=== PATIENT | female | born 1965 | race Caucasian/White ===

== ENCOUNTER 2018-02-26 09:13 | Outpatient (CLI) | payer OTHER ==
[2018-02-26 10:11] LABS: HB2 TOTAL 15.2 g/dL; HEMOGLOBIN A1C 0.81 g/dL
== END 2018-02-26 09:14 | disposition home or self-care (01) ==
LOC: LAB 09:13
PROVIDERS: ATTEND Family Medicine
DX: E11.43 Type 2 diabetes mellitus with diabetic autonomic (poly)neuropathy (principal)
CPT/HCPCS: 36415; 83036

== ENCOUNTER 2018-08-26 08:42 | Emergency (ER) | payer OTHER ==
--- NOTE | 2018-08-26 09:05 | ED Physician Documentation ---
PD HPI BACK INJURY - Stated complaint Stated Complaint: GLF - History obtained from History obtained from: Patient - History of Present Illness Location: Left, Lower Where injury occurred: Work Timing - onset: How many days ago (4) Timing - duration: Days (4) Timing - details: Abrupt onset (slipped and twisted, with pain in back. Did not fall/impact the ground. Pain low back left side.), Still present Quality: Pain, Spasm, Aching Improved by: Rest, Immobilization Worsened by: Moving, Palpating Associated symptoms: Other (pain radiates down left back of leg to level of behind knee. Sometimes to lateral left lower leg.). No: Fever, Weakness, Numbness Contributing factors: Work related Similar symptoms before: Has not had sx before Review of Systems Constitutional: denies: Fever, Chills, Myalgias Nose: denies: Rhinorrhea / runny nose, Congestion Throat: denies: Sore throat Respiratory: denies: Cough GI: denies: Abdominal Pain, Nausea, Vomiting, Diarrhea : denies: Incontinent Skin: denies: Rash, Abrasion (s), Laceration (s) Neurologic: denies: Focal weakness, Numbness PD PAST MEDICAL HISTORY - Past Medical History Cardiovascular: Hypertension, High cholesterol Endocrine/Autoimmune: Type 2 diabetes - Present Medications Home Medications: Ambulatory Orders Medication Instructions Recorded Confirmed Glipizide 5 mg PO DAILY 08/26/18 08/26/18 Hydrocodone/Acetaminophen [[place] 1 - 2 each PO Q6H PRN #25 tablet 08/26/18 5-325 Tablet] Liraglutide [Victoza 2-Reagan] 0.6 mg SQ DAILY 08/26/18 08/26/18 Lisinopril 20 mg PO DAILY 08/26/18 08/26/18 Methocarbamol [Robaxin] 500 mg PO Q6H PRN #30 tablet 08/26/18 Naproxen 500 mg PO BID #20 tablet 08/26/18 Simvastatin 40 mg PO DAILY 08/26/18 08/26/18 metFORMIN [Glucophage] 500 mg PO BIDWM 08/26/18 08/26/18 - Allergies Allergies/Adverse Reactions: Allergies Allergy/AdvReac Type Severity Reaction Status Date / Time No Known Drug Allergies Allergy Verified 08/26/18 08:49 - Social History Does the pt smoke?: No Smoking Status: Never smoker Does the pt drink ETOH?: No Does the pt have substance abuse?: No PD ED PE NORMAL - Vitals Vital signs reviewed: Yes - General General: Alert and oriented X 3, Well developed/nourished, Other (appears uncomfortable with ROM. ) - Cardiac Cardiac: RRR, No murmur - Respiratory Respiratory: Clear bilaterally - Abdomen Abdomen: Normal bowel sounds, Soft, Non tender - Back Back: No CVA TTP, No spinal TTP (she is tender left lateral lumbar muscles and there is a focal area of tenderness and muscle spasm left lateral just above SI joint area. ) - Derm Derm: Normal color, Warm and dry, No rash - Neuro Neuro: Alert and oriented X 3, No motor deficit, No sensory deficit, Normal speech, Other (normal knee reflexes. ) Results - Vitals Vitals: Vital Signs - 24 hr 08/26/18 08/26/18 08:47 11:27 Temperature 36.2 C L Heart Rate 79 73 Respiratory 20 14 Rate Blood Pressure 180/68 H 139/53 H O2 Saturation 96 92 Oxygen O2 Source Room air PD MEDICAL DECISION MAKING - ED course Complexity details: considered differential (seems like muscle strain. No direct impact/fall; do not see any value added from imaging at this time. ), d/w patient Departure - Departure Disposition: 01 Home, Self Care Clinical Impression: Fall due to slipping on ice or snow Qualifiers: Encounter type: initial encounter Qualified Code(s): W00.9XXA - Unspecified fall due to ice and snow, initial encounter Acute lumbar myofascial strain Qualifiers: Encounter type: initial encounter Qualified Code(s): S39.012A - Strain of muscle, fascia and tendon of lower back, initial encounter Condition: Stable Record reviewed to determine appropriate education?: Yes Instructions: ED Sprain Strain Lumbar Follow-Up: Albin Steinberg MD [Primary Care Provider] - Prescriptions: Hydrocodone/Acetaminophen [Abbott 5-325 Tablet] 1 - 2 each PO Q6H PRN #25 tablet PRN Reason: Pain Methocarbamol [Robaxin] 500 mg PO Q6H PRN #30 tablet PRN Reason: Spasms Naproxen 500 mg PO BID #20 tablet Comments: Heat and gentle stretching for the low back area. Local treatment such as massage and chiropractic are very good to try. Use some anti-inflammatories such as naproxen or ibuprofen twice daily. Add muscle relaxant methocarbamol every 4-6 hours if needed for spasms. Add pain medicine hydrocodone every 4-6 hours as needed for pain. Recheck if not improving over the next several days. Off work for couple of days and then progress as able. Forms: Activity restrictions Discharge Date/Time: 08/26/18 11:41
[2018-08-26] MEDS ORDERED: BUPIVACAINE 0.25%-EPI 1:200000 PF 10 ML VIAL SUBQ ONE (09:33)
[2018-08-26] MEDS ORDERED: KETOROLAC 60 MG/2 ML VIAL IM STA (09:33)
[2018-08-26] MEDS ORDERED: TRIAMCINOLONE 40 MG/ML VIAL IM STA (09:33)
[2018-08-26] MEDS ORDERED: HYDROmorphone 2 MG/ML VIAL IM STA (09:34)
[2018-08-26] MEDS ORDERED: diazePAM 5 MG TABLET PO STA (09:34)
[2018-08-26] MEDS ORDERED: LIDOCAINE MPF 2%-EPI 1:200000 20 ML VIAL SUBQ STA (10:07)
[2018-08-26] MEDS ORDERED: LIDOCAINE 2% 10 ML MDV ONE (10:11)
[2018-08-26 11:28] VITALS: BP 139/53
== END 2018-08-26 11:41 | disposition home or self-care (01) ==
LOC: ED 08:42
DX: S39.012A Strain of muscle, fascia and tendon of lower back, initial encounter (principal); W00.0XXA Fall on same level due to ice and snow, initial encounter; Y93.01 Activity, walking, marching and hiking; Y92.89 Other specified places as the place of occurrence of the external cause; Y99.0 Civilian activity done for income or pay; M62.830 Muscle spasm of back; M79.662 Pain in left lower leg; I10 Essential (primary) hypertension; E11.9 Type 2 diabetes mellitus without complications; Z79.84 Long term (current) use of oral hypoglycemic drugs
CPT/HCPCS: 1040M; 96372; 99283; A9270; J1170

== ENCOUNTER 2018-10-11 08:42 | Outpatient (CLI) | payer OTHER ==
[2018-10-11 10:47] LABS: BASOPHILS # (AUTO) 0.1 10^3/uL (0.0-0.1); BASOPHILS % (AUTO) 0.9 %; EOSINOPHILS # (AUTO) 0.3 10^3/uL (0.0-0.7); EOSINOPHILS % (AUTO) 4.7 %; HGB - HEMOGLOBIN 14.3 g/dL (12.0-16.0); LYMPHOCYTES # (AUTO) 1.4 10^3/uL (1.5-3.5); LYMPHOCYTES % (AUTO) 19.5 %; MEAN CORPUSCULAR HEMOGLOBIN 27.1 pg (27.0-31.0); MEAN CORPUSCULAR HGB CONC 33.1 g/dL (32.0-36.0); MEAN PLATELET VOLUME 7.3 fL (7.9-10.8); MONOCYTES # (AUTO) 0.3 10^3/uL (0.0-1.0); MONOCYTES % (AUTO) 4.3 %; NEUTROPHILS # (AUTO) 5.1 10^3/uL (1.5-6.6); NEUTROPHILS % (AUTO) 70.6 %; PLT - PLATELET COUNT 195 10^3/uL (130-450); RED BLOOD COUNT 5.27 10^6/uL (4.20-5.40); RED CELL DISTRIBUTION WIDTH 14.9 % (12.0-15.0); WHITE BLOOD COUNT 7.3 x10^3/uL (4.8-10.8)
[2018-10-11 10:56] LABS: ALBUMIN 3.6 g/dL (3.2-5.5); ALKALINE PHOSPHATASE 73 IU/L (42-121); ALT ALANINE AMINOTRANSFERASE 22 IU/L (10-60); AST ASPARTATE AMINOTRANSFERASE 21 IU/L (10-42); BILIRUBIN,TOTAL 0.9 mg/dL (0.2-1.0); BUN - BLOOD UREA NITROGEN 29 mg/dL (6-20); CALCIUM 9.5 mg/dL (8.5-10.3); CARBON DIOXIDE - CO2 29 mmol/L (21-32); CHLORIDE 98 mmol/L (101-111); CHOLESTEROL 155 mg/dL; GFR - MDRD 58 (>89); GLUCOSE 276 mg/dL (70-100); HDL CHOLESTEROL 39 mg/dL; LDL CHOLESTEROL,CALCULATED 85 mg/dL; LDL/HDL RATIO 2.2 (<4.4); SODIUM 135 mmol/L (135-145); TOTAL PROTEIN 7.1 g/dL (6.7-8.2); VLDL CHOLESTEROL 31 mg/dL
[2018-10-11 11:04] LABS: HB2 TOTAL 15.6 g/dL; HEMOGLOBIN A1C 1.19 g/dL; HEMOGLOBIN A1C % 9.1 % (4.6-6.2)
== END 2018-10-11 08:43 | disposition home or self-care (01) ==
LOC: LAB.F 08:42
PROVIDERS: ATTEND Registered Nurse
DX: Z00.00 Encounter for general adult medical examination without abnormal findings (principal)
CPT/HCPCS: 36415; 80053; 80061; 83036; 83721; 84443; 85025

== ENCOUNTER 2019-04-22 12:04 | Outpatient (CLI) | payer OTHER | END 2019-04-22 12:05 | disposition critical access hospital (66) | LOC: EMS 12:04 | PROVIDERS: ATTEND Surgery | DX: S09.90XA Unspecified injury of head, initial encounter (principal); W01.198A Fall on same level from slipping, tripping and stumbling with subsequent striking against other object, initial encounter; Y93.01 Activity, walking, marching and hiking | CPT/HCPCS: A0425; A0429 ==

== ENCOUNTER 2019-04-22 12:22 | Emergency (ER) | payer OTHER ==
[2019-04-22 12:30] VITALS: BP 138/70
[2019-04-22] MEDS ORDERED: ACETAMINOPHEN 325 MG TABLET PO STA (12:40)
--- NOTE | 2019-04-22 12:42 | ED Physician Documentation ---
PD HPI HEAD INJURY - Stated complaint Stated Complaint: HEAD PX - Chief complaint Chief Complaint: Trauma Hd/Nk - History obtained from History obtained from: Patient - History of Present Illness Mechanism of head injury: Fell (53-year-old woman was at work today, she tripped and hit her head on the door jam going down. There is no loss of consciousness. She has a moderate headache. She also complains of left knee pain but was able to ambulate on it. No other injuries. Denies neck pain.) Review of Systems Eyes: denies: Loss of vision, Decreased vision, Photophobia Ears: denies: Loss of hearing, Ear pain GI: denies: Abdominal Pain, Nausea, Vomiting PD PAST MEDICAL HISTORY - Past Medical History Cardiovascular: Hypertension, High cholesterol Endocrine/Autoimmune: Type 2 diabetes - Present Medications Home Medications: Ambulatory Orders Medication Instructions Recorded Confirmed Glipizide 5 mg PO DAILY 08/26/18 08/26/18 Hydrocodone/Acetaminophen [[place] 1 - 2 each PO Q6H PRN #25 tablet 08/26/18 5-325 Tablet] Liraglutide [Victoza 2-Reagan] 0.6 mg SQ DAILY 08/26/18 08/26/18 Lisinopril 20 mg PO DAILY 08/26/18 08/26/18 Methocarbamol [Robaxin] 500 mg PO Q6H PRN #30 tablet 08/26/18 Naproxen 500 mg PO BID #20 tablet 08/26/18 Simvastatin 40 mg PO DAILY 08/26/18 08/26/18 metFORMIN [Glucophage] 500 mg PO BIDWM 08/26/18 08/26/18 - Allergies Allergies/Adverse Reactions: Allergies Allergy/AdvReac Type Severity Reaction Status Date / Time No Known Drug Allergies Allergy Unverified 04/22/19 12:30 - Social History Does the pt smoke?: No Smoking Status: Never smoker Does the pt drink ETOH?: No Does the pt have substance abuse?: No PD ED PE NORMAL - Vitals Vital signs reviewed: Yes - General General: Alert and oriented X 3, No acute distress - HEENT HEENT: PERRL, EOMI, Pharynx benign - Neck Neck: Supple, no meningeal sign, No bony TTP - Cardiac Cardiac: RRR, No murmur - Respiratory Respiratory: No respiratory distress, Clear bilaterally - Abdomen Abdomen: Non tender - Extremities Extremities: Other (There is a scrape on the anterior left knee, she is tender there over the tibial plateau. No deformity. Ligamentous testing is intact.) - Neuro Neuro: Alert and oriented X 3, No motor deficit, No sensory deficit, Normal speech Results - Vitals Vitals: Vital Signs - 24 hr 04/22/19 12:26 Temperature 97.3 C H Heart Rate 79 Respiratory 16 Rate Blood Pressure 138/70 H O2 Saturation 96 Oxygen O2 Source Room air - Rads (name of study) 4v L knee at CT head Radiology: EMP read contemporaneously (NAD) PD MEDICAL DECISION MAKING - ED course ED course: Consideration was given to the possibility of a cervical spine injury in this patient. The nexus criteria were applied. The patient has no focal neurologic deficit on examination. The patient has no midline spinal tenderness. The patient has a normal level of consciousness. The patient has no evidence of intoxication. There is no distracting injury presents. Given that these were all negative, per the Nexus criteria the cervical spine was cleared without imaging. Departure - Departure Disposition: 01 Home, Self Care Clinical Impression: Head injury Qualifiers: Encounter type: initial encounter Qualified Code(s): S09.90XA - Unspecified injury of head, initial encounter Contusion of left knee Qualifiers: Encounter type: initial encounter Qualified Code(s): S80.02XA - Contusion of left knee, initial encounter Condition: Good Record reviewed to determine appropriate education?: Yes Instructions: ED Head Injury Closed Comments: Your blood pressure was elevated today on check into the emergency department. This does not mean that you have hypertension, it is a common phenomenon to come to the emergency department and have elevated blood pressure. I recommend that you see your primary care physician within the week to have it rechecked when you are feeling better.
--- NOTE | 2019-04-22 13:27 | XRAY Report ---
Reason: knee inj Procedure Date: 04/22/2019 Accession Number: [id number] / [id number] Procedure: XR - Knee 4 View LT CPT Code: FULL RESULT: EXAM: LEFT KNEE RADIOGRAPHY EXAM DATE: 04/22/2019 01:06 PM. CLINICAL HISTORY: Knee injury. COMPARISON: None. TECHNIQUE: 3 views. FINDINGS: Bones: Normal. No fractures or bone lesions. Joints: Minor degenerative spurring of the medial tibial spine and margin of the medial compartment. No dislocation or subluxation. Soft Tissues: Normal. No soft tissue swelling. IMPRESSION: No acute fracture or malalignment. RADIA
--- NOTE | 2019-04-22 13:31 | CT Report ---
Reason: head inj Procedure Date: 04/22/2019 Accession Number: [id number] / [id number] Procedure: CT - HEAD WO CPT Code: FULL RESULT: EXAM: CT HEAD EXAM DATE: 04/22/2019 01:11 PM. CLINICAL HISTORY: Head injury. COMPARISON: None. TECHNIQUE: Multiaxial CT images were obtained from the foramen magnum to the vertex. Reformats: Sagittal and coronal. IV contrast: None. In accordance with CT protocol optimization, one or more of the following dose reduction techniques were utilized for this exam: automated exposure control, adjustment of mA and/or KV based on patient size, or use of iterative reconstructive technique. FINDINGS: Parenchyma: No intraparenchymal hemorrhage. No evidence of mass, midline shift, or CT findings of infarction. Bedolla-white differentiation is distinct. Extraaxial Spaces: Normal for age. No subdural or epidural collections identified. Ventricles: Normal in size and position. Sinuses and Orbits: Imaged paranasal sinuses, orbits, and mastoids show no significant abnormality. Bones: No evidence of fracture or calvarial defect. Other: Focal scalp swelling/hematoma left frontal scalp. IMPRESSION: No evidence of calvarial fracture or intracranial injury/hemorrhage. Focal left frontal scalp hematoma. RADIA
== END 2019-04-22 13:46 | disposition home or self-care (01) ==
LOC: EDUNIT# → ED 12:22
DX: S09.90XA Unspecified injury of head, initial encounter (principal); S80.02XA Contusion of left knee, initial encounter; S80.212A Abrasion, left knee, initial encounter; W01.198A Fall on same level from slipping, tripping and stumbling with subsequent striking against other object, initial encounter; Y99.0 Civilian activity done for income or pay; I10 Essential (primary) hypertension; E11.9 Type 2 diabetes mellitus without complications; Z79.84 Long term (current) use of oral hypoglycemic drugs
CPT/HCPCS: 1040M; 70450; 73564; 99284; A9270

== ENCOUNTER 2019-10-13 11:09 | Outpatient (CLI) | payer OTHER | END 2019-10-13 11:10 | disposition home or self-care (01) | LOC: COV 11:09 | PROVIDERS: ATTEND Family Medicine | DX: R05 Cough (principal) | CPT/HCPCS: 81599 ==

== ENCOUNTER 2020-04-06 07:12 | Outpatient (CLI) | payer OTHER | END 2020-04-06 07:13 | disposition home or self-care (01) | LOC: DI 07:12 | PROVIDERS: ATTEND Internal Medicine | DX: Z53.9 Procedure and treatment not carried out, unspecified reason (principal) ==

== ENCOUNTER 2020-10-27 11:21 | Emergency (ER) | payer OTHER ==
--- NOTE | 2020-10-27 11:30 | ED Physician Documentation ---
PD HPI CHEST PAIN - Stated complaint Stated Complaint: R SIDE PX - Chief complaint Chief Complaint: Cardiac - History obtained from History obtained from: Patient - History of Present Illness Timing - onset: How many days ago (5) Timing - onset during: Light activity Timing - duration: Days (5) Timing - details: Gradual onset, Still present, Waxing and waning Quality: Aching, Sharp, Pain Location: Right chest Radiation: Back. No: Jaw, Neck Improved by: Rest Worsened by: Inspiration, Movement, Palpation, Other (cough) Associated symptoms: Shortness of air, Cough. No: Nausea, Vomiting, Feeling faint / dizzy, Palpitations Similar symptoms before: Has not had sx before Recently seen: Not recently seen Review of Systems Constitutional: denies: Fever, Chills Nose: denies: Rhinorrhea / runny nose, Congestion Throat: denies: Sore throat Cardiac: reports: Chest pain / pressure. denies: Palpitations, Pedal edema, Calf pain Respiratory: reports: Dyspnea, Cough, Wheezing GI: denies: Nausea, Vomiting, Diarrhea Skin: denies: Rash, Lesions Musculoskeletal: denies: Extremity swelling PD PAST MEDICAL HISTORY - Past Medical History Cardiovascular: Hypertension, High cholesterol Endocrine/Autoimmune: Type 2 diabetes - Present Medications Home Medications: Ambulatory Orders Medication Instructions Recorded Confirmed Glipizide 5 mg PO DAILY 08/26/18 10/27/20 Liraglutide [Victoza 2-Reagan] 0.6 mg SQ DAILY 08/26/18 10/27/20 Simvastatin 40 mg PO DAILY 08/26/18 10/27/20 metFORMIN [Glucophage] 1,000 mg PO BIDWM 08/26/18 10/27/20 Albuterol Sulfate [Proair Hfa 1 - 2 puffs INH Q4H PRN 10/27/20 10/27/20 Inhaler] HYDROcod/ACETAM 5/325 [[place]endall 5/325] 1 ea PO Q6H PRN #18 tablet 10/27/20 amLODIPine [Norvasc] 5 mg PO DAILY 10/27/20 10/27/20 dexAMETHasone [Decadron] 4 mg PO DAILY #5 tablet 10/27/20 - Allergies Allergies/Adverse Reactions: Allergies Allergy/AdvReac Type Severity Reaction Status Date / Time No Known Drug Allergies Allergy Verified 10/27/20 11:23 - Social History Does the pt smoke?: No Smoking Status: Never smoker Does the pt drink ETOH?: No Does the pt have substance abuse?: No PD ED PE NORMAL - Vitals Vital signs reviewed: Yes - General General: Alert and oriented X 3, No acute distress, Well developed/nourished - HEENT HEENT: Moist mucous membranes, Pharynx benign - Neck Neck: Supple, no meningeal sign, No adenopathy - Cardiac Cardiac: RRR, No murmur - Respiratory Respiratory: Clear bilaterally, Other (chestwall tenderness right anterolateral chest below breast. Not tender to the back. No skin rash nor sores. ) - Abdomen Abdomen: Soft, Non distended, Other (mild tenderness RUQ without guarding. ) - Derm Derm: Normal color, Warm and dry - Extremities Extremities: No tenderness to palpate, No edema, No calf tenderness / cord - Neuro Neuro: Alert and oriented X 3, No motor deficit, Normal speech Results - Vitals Vitals: Vital Signs - 24 hr 10/27/20 10/27/20 10/27/20 11:23 11:43 12:04 Temperature 36.1 C L Heart Rate 82 84 77 Respiratory 20 29 H 14 Rate Blood Pressure 151/71 H O2 Saturation 94 97 10/27/20 13:09 Temperature 36.6 C Heart Rate 79 Respiratory 19 Rate Blood Pressure 182/84 H O2 Saturation 93 Oxygen O2 Source Room air - EKG (time done) 11:35 Rate: Rate (enter#) (82) Rhythm: NSR [place]: Normal Intervals: Normal [place] QRS: Normal Ischemia: Normal ST segments. No: ST elevation c/w ischemia, ST depression - Labs Labs: Laboratory Tests 10/27/20 10/27/20 10/27/20 11:45 11:45 11:45 WBC 6.4 RBC 5.89 H Hgb 16.1 H Hct 49.9 H MCV 84.7 MCH 27.3 MCHC 32.3 RDW 15.1 H Plt Count 171 MPV 8.7 Neut # (Auto) 4.3 Lymph # (Auto) 1.4 L [place] # (Auto) 0.3 Eos # (Auto) 0.3 Baso # (Auto) 0.0 Absolute Nucleated RBC 0.00 Nucleated RBC % 0.0 Sodium 140 Potassium 4.3 Chloride 100 L Carbon Dioxide 31 Anion Gap 9.0 BUN 18 Creatinine 0.8 Estimated GFR (MDRD) 74 L Glucose 371 H Calcium 9.4 Total Bilirubin 0.9 AST 18 ALT 21 Alkaline Phosphatase 67 Troponin I High Sens 6.0 B-Natriuretic Peptide Total Protein 6.5 L Albumin 3.4 Globulin 3.1 Albumin/Globulin Ratio 1.1 Lipase 51 10/27/20 11:45 WBC RBC Hgb Hct MCV MCH MCHC RDW Plt Count MPV Neut # (Auto) Lymph # (Auto) [place] # (Auto) Eos # (Auto) Baso # (Auto) Absolute Nucleated RBC Nucleated RBC % Sodium Potassium Chloride Carbon Dioxide Anion Gap BUN Creatinine Estimated GFR (MDRD) Glucose Calcium Total Bilirubin AST ALT Alkaline Phosphatase Troponin I High Sens B-Natriuretic Peptide 41 Total Protein Albumin Globulin Albumin/Globulin Ratio Lipase - Rads (name of study) chest xray Radiology: Prelim report reviewed (no acute process), See rad report RUQ abd U/S Radiology: Prelim report reviewed (gallstones but no signs of cholecystitis. ), See rad report PD MEDICAL DECISION MAKING - ED course Complexity details: reviewed results, considered differential (right chest pain and is pleuritic. Has had cough and congestion. Can get CXR to eval, consider muscle strain or pleuritc with exac asthma. ), d/w patient Departure - Departure Disposition: Home, Self Care Clinical Impression: Right-sided chest pain Condition: Stable Record reviewed to determine appropriate education?: Yes Instructions: ED Strain Chest Wall Follow-Up: Queenie Freeman MD [Primary Care Provider] - Prescriptions: dexAMETHasone [Decadron] 4 mg PO DAILY #5 tablet HYDROcod/ACETAM 5/325 [[place] 5/325] 1 ea PO Q6H PRN #18 tablet PRN Reason: Pain Comments: No signs of serious causes of your pain based on your EKG, chest x-ray, lab tests, ultrasound. I presume you are having some musculoskeletal pain in the area given some tenderness to palpation. This may relate to your recent cough and some flaring of asthma. Continue your usual inhalers 4 times a day regularly. Continue other usual medicines. Add Decadron steroid daily for 5 more days. If you find your blood sugars elevating too much, then discontinue the steroid. Use Tylenol 4 times a day for pain or hydrocodone with Tylenol if needed for worse pain. Follow-up with your primary care Sunday as planned. Return if worsening or other symptoms develop. Forms: Activity restrictions Discharge Date/Time: 10/27/20 13:24
[2020-10-27 11:49] LABS: BASOPHILS % (AUTO) 0.5 %; EOSINOPHILS # (AUTO) 0.3 10^3/uL (0.0-0.7); EOSINOPHILS % (AUTO) 4.7 %; HCT - HEMATOCRIT 49.9 % (37.0-47.0); HGB - HEMOGLOBIN 16.1 g/dL (12.0-16.0); LYMPHOCYTES # (AUTO) 1.4 10^3/uL (1.5-3.5); LYMPHOCYTES % (AUTO) 21.9 %; MEAN CORPUSCULAR HEMOGLOBIN 27.3 pg (27.0-31.0); MEAN CORPUSCULAR HGB CONC 32.3 g/dL (32.0-36.0); MEAN CORPUSCULAR VOLUME 84.7 fL (81.0-99.0); MEAN PLATELET VOLUME 8.7 fL (7.9-10.8); MONOCYTES # (AUTO) 0.3 10^3/uL (0.0-1.0); MONOCYTES % (AUTO) 4.4 %; NEUTROPHILS # (AUTO) 4.3 10^3/uL (1.5-6.6); NEUTROPHILS % (AUTO) 68.2 %; PLT - PLATELET COUNT 171 10^3/uL (130-450); RED BLOOD COUNT 5.89 10^6/uL (4.20-5.40); RED CELL DISTRIBUTION WIDTH 15.1 % (12.0-15.0); WHITE BLOOD COUNT 6.4 x10^3/uL (4.8-10.8)
[2020-10-27] MEDS ORDERED: KETOROLAC 30 MG/ML VIAL IVP STA (11:53)
[2020-10-27] MEDS ORDERED: ALBUTEROL NEB 2.5 MG/3 ML INH STA (11:53)
--- OUTSIDE RECORDS SUMMARY | 2020-10-27 12:00 | EXTERNAL MEDICAL SUMMARY RPT | Continuity of Care Document ---
:1965 Demographics Phone Unavailable Preferred Language Unknown Marital Status Unknown Anabaptist Affiliation Unknown Race Unknown Ethnic Group Unknown Author Organization [facility] Address [address] [phone] Phone Social History date description facility [id number]
[2020-10-27 12:08] LABS: ALBUMIN 3.4 g/dL (3.2-5.5); ALBUMIN/GLOBULIN RATIO 1.1 (1.0-2.2); BILIRUBIN,TOTAL 0.9 mg/dL (0.2-1.0); CALCIUM 9.4 mg/dL (8.5-10.3); CREATININE 0.8 mg/dL (0.4-1.0); POTASSIUM 4.3 mmol/L (3.5-5.0); TOTAL PROTEIN 6.5 g/dL (6.7-8.2)
--- NOTE | 2020-10-27 12:44 | XRAY Report ---
PROCEDURE: Chest 1 View X-Ray INDICATIONS: Chest Pain TECHNIQUE: One view of the chest was acquired. COMPARISON: None FINDINGS: Surgical changes and devices: None. Lungs and pleura: No pleural effusions or pneumothorax. Lungs are clear. Mediastinum: Mediastinal contours appear normal. Heart size is normal. Bones and chest wall: No suspicious bony lesions. Overlying soft tissues appear unremarkable. IMPRESSION: No acute cardiopulmonary pathology. Reviewed by: Daniele Lambert MD on 10/27/2020 11:43 AM AASHISH Approved by: Daniele Lambert MD on 10/27/2020 11:43 AM AASHISH Station ID: [id number]
[2020-10-27] MEDS ORDERED: HYDROmorphone 1 MG/ML CARPUJECT IVP STA (12:58)
[2020-10-27] MEDS ORDERED: DEXAMETHASONE 10 MG/ML VIAL IVP STA (12:58)
[2020-10-27 13:12] VITALS: BP 182/84
--- NOTE | 2020-10-27 13:13 | Ultrasound Report ---
PROCEDURE: Abdomen Limited INDICATIONS: right chest/RUQ pain for several days TECHNIQUE: Real-time scanning was performed of the abdominal and retroperitoneal organs, with image documentatio n. COMPARISON: None. FINDINGS: Liver: Liver is enlarged. Diffusely increased liver parenchymal echotexture is seen. No discrete hep atic lesion. Gallbladder: 1.3 x 0.8 cm shadowing stone is seen in dependent portion of gallbladder lumen. No gallb ladder wall thickening or pericholecystic fluid. No sonographic Peguero's sign. Biliary ducts: Intrahepatic bile ducts are non-dilated. Extrahepatic bile duct caliber measures 4.1 mm. Normal is 6-7 mm or less in diameter, or 10 mm or less post-cholecystectomy. Pancreas: Pancreas is not well visualized. Kidneys: Right kidney measures 11.9 cm long. No hydronephrosis or nephrolithiasis. No solid masses. IMPRESSION: 1. Cholelithiasis. No sonographic evidence of acute cholecystitis. No biliary ductal dilatation. 2. Pancreas is not well seen. Hepatomegaly and diffuse hepatic steatosis. Reviewed by: Daniele Lambert MD on 10/27/2020 12:11 PM AKDT Approved by: Daniele Lambert MD on 10/27/2020 12:11 PM AKDT Station ID: [id number]
== END 2020-10-27 13:24 | disposition home or self-care (01) ==
LOC: ED 11:21
DX: R07.81 Pleurodynia (principal); R05 Cough; R06.2 Wheezing; K80.20 Calculus of gallbladder without cholecystitis without obstruction; K76.0 Fatty (change of) liver, not elsewhere classified; I10 Essential (primary) hypertension; E11.9 Type 2 diabetes mellitus without complications; Z79.84 Long term (current) use of oral hypoglycemic drugs
CPT/HCPCS: 36415; 71045; 76705; 80053; 83690; 83880; 84484; 85025; 93005; 94640; 96374; 96375; 99284; J1170

== ENCOUNTER 2021-02-16 07:09 | Day surgery (SDC) | payer OTHER ==
[2021-02-16] MEDS ORDERED: LACTATED RINGERS 1,000 ML IV ONE ×2 (08:10→09:06)
[2021-02-16] MEDS ORDERED: fentaNYL 250 MCG/5 ML VIAL ONE (08:27)
[2021-02-16] MEDS ORDERED: MIDAZOLAM 2 MG/2 ML VIAL ONE ×3 (08:27→08:45)
[2021-02-16 09:38] VITALS: BP 148/74
== END 2021-02-16 07:10 | disposition home or self-care (01) ==
LOC: SDS 07:09
PROVIDERS: ATTEND Surgery
PROC: 0DBP8ZZ Excision of Rectum, Via Natural or Artificial Opening Endoscopic (ICD-10-PCS; 2021-02-16)
PROC: 0DBN8ZZ Excision of Sigmoid Colon, Via Natural or Artificial Opening Endoscopic (ICD-10-PCS; principal; 2021-02-16 08:15)
DX: Z12.11 Encounter for screening for malignant neoplasm of colon (principal); K63.5 Polyp of colon; K62.1 Rectal polyp; K57.30 Diverticulosis of large intestine without perforation or abscess without bleeding; K64.8 Other hemorrhoids; J45.909 Unspecified asthma, uncomplicated; I10 Essential (primary) hypertension; E11.9 Type 2 diabetes mellitus without complications; Z79.84 Long term (current) use of oral hypoglycemic drugs; Z79.899 Other long term (current) drug therapy
CPT/HCPCS: 45380; 45385; J3010; J7120

== ENCOUNTER 2021-03-25 08:00 | Outpatient (CLI) | payer OTHER ==
--- NOTE | 2021-03-25 17:30 | XRAY Report ---
PROCEDURE: Lumbar Spine 2 View INDICATIONS: STRAIN OF MUSCLE/TENDON OF LOWER BACK TECHNIQUE: 3 views of the lumbar spine were acquired. COMPARISON: None. FINDINGS: Bones: 5 [id number] vertebrae are present. There is normal bony alignment. No vertebral body compression fractures. No suspicious bony lesions. Loss of the normal lumbar lordosis. There is mod erate to severe disc height loss at the L5-S1 level where there is mild facet joint arthropathy. Soft tissues: Overlying bowel gas pattern is normal. No suspicious soft tissue calcifications. Vas cular calcifications. IMPRESSION: Moderate to severe L5-S1 disc degeneration and mild facet joint arthropathy. Reviewed by: MANJINDER Kulkarni on 03/25/2021 5:28 PM PDT Approved by: Daniele Lambert MD on 03/25/2021 5:28 PM PDT Station ID: [id number]
== END 2021-03-25 23:59 | disposition home or self-care (01) ==
LOC: DI.S 08:00
PROVIDERS: ATTEND Nurse Practitioner
DX: M51.37 Other intervertebral disc degeneration, lumbosacral region (principal); M47.817 Spondylosis without myelopathy or radiculopathy, lumbosacral region; M47.816 Spondylosis without myelopathy or radiculopathy, lumbar region; M51.36 Other intervertebral disc degeneration, lumbar region

== ENCOUNTER 2021-05-02 12:26 | Outpatient (CLI) | payer OTHER ==
--- NOTE | 2021-05-02 13:30 | Ultrasound Report ---
PROCEDURE: Duplex Ext Veins Left INDICATIONS: L LE EDEMA TECHNIQUE: Real-time imaging, as well as color and pulse Doppler interrogation, were performed of the lower extr emity deep veins from the inguinal ligament to the popliteal fossa. COMPARISON: None. FINDINGS: Thrombus noted in the left popliteal vein which causes complete occlusion. No thrombus iden tified in the left common femoral superficial femoral veins. Left calf veins not well-seen. IMPRESSION: Abnormal study demonstrating deep vein thrombosis causing complete occlusion of the left popliteal vein. Reviewed by: Zakiya Payan MD, PhD on 05/02/2021 1:29 PM PDT Approved by: Zakiya Payan MD, PhD on 05/02/2021 1:29 PM PDT Station ID: [id number]
== END 2021-05-02 12:27 | disposition home or self-care (01) ==
LOC: DI 12:26
PROVIDERS: ATTEND Internal Medicine
DX: I82.432 Acute embolism and thrombosis of left popliteal vein (principal)

== ENCOUNTER 2021-05-09 07:10 | Outpatient (CLI) | payer OTHER ==
--- NOTE | 2021-05-09 17:27 | MRI Report ---
PROCEDURE: Lumbar Spine W/O INDICATIONS: LOWER BACK PAIN, L SCIATICA TECHNIQUE: Noncontrast sagittal T1 spin echo and T2 fast echo, sagittal STIR, axial T1 and T2 fast spin echo thr ough the lumbar spine. In cases with scoliosis, additional coronal T2 fast spin echo may be performe d. COMPARISON: None. FINDINGS: Image quality: Excellent. Alignment and Curvature: There is normal bony alignment. Bone Marrow: Marrow is of normal overall signal. No acute vertebral body compression fractures. Spinal Cord: Conus medullaris terminates at the L2 level. Visualized cord demonstrates normal signa l and size. Paraspinous Soft Tissues: No paravertebral masses. T12-L1: Normal in appearance. L1-L2: Normal in appearance. L2-L3: Normal in appearance. L3-L4: Normal in appearance. L4-L5: Loss of disc signal and mild loss of disc height. Mild, diffuse disc bulge. Large left centr al disc extrusion. Extruded disc material extends inferiorly into the left lateral recess. Disc extru deb compresses the left L5 nerve root. Mild narrowing of the central canal. Mild bilateral neural fo raminal narrowing. L5-S1: Loss of disc signal and height. Mild, diffuse disc bulge. Mild bilateral facet hypertrophy. No central stenosis. Mild right and severe left neural foraminal narrowing with compression of the e xiting left L5 nerve root. IMPRESSION: 1. Left central L4-L5 disc extrusion. Extruded disc material compresses the left L5 nerve root. 2. L4-L5 and L5-S1 degenerative disc disease. 3. L5-S1 facet arthropathy. 4. No severe central canal narrowing. 5. Severe left L5-S1 neural foraminal narrowing with compression of the exiting left L5 nerve root. Reviewed by: Zakiya Payan MD, PhD on 05/09/2021 5:26 PM PDT Approved by: Zakiya Payan MD, PhD on 05/09/2021 5:26 PM PDT Station ID: [id number]
== END 2021-05-09 07:11 | disposition home or self-care (01) ==
LOC: DI 07:10
PROVIDERS: ATTEND Internal Medicine
DX: M51.26 Other intervertebral disc displacement, lumbar region (principal); M51.36 Other intervertebral disc degeneration, lumbar region; M48.07 Spinal stenosis, lumbosacral region; M51.17 Intervertebral disc disorders with radiculopathy, lumbosacral region

== ENCOUNTER 2021-08-18 08:15 | Outpatient (CLI) | payer OTHER ==
--- NOTE | 2021-08-18 09:19 | Ultrasound Report ---
PROCEDURE: Duplex Ext Veins Left INDICATIONS: DVT LLE, F/U TECHNIQUE: Real-time imaging, as well as color and pulse Doppler interrogation, were performed of the lower extr emity deep veins from the inguinal ligament to the popliteal fossa. COMPARISON: 04/30/2021 FINDINGS: The deep veins are normally compressible, and free of intraluminal thrombus. Color and pu lse Doppler demonstrate normal phasic intraluminal flow. There is normal augmentation response to di stal compression maneuver. IMPRESSION: No sonographic evidence of DVT. Previously demonstrated thrombus has resolved. Reviewed by: Josias Knowles MD on 08/18/2021 9:17 AM PST Approved by: Josias Knowles MD on 08/18/2021 9:17 AM PST Station ID: [id number]
== END 2021-08-18 08:16 | disposition home or self-care (01) ==
LOC: DI 08:15
PROVIDERS: ATTEND Internal Medicine
DX: R22.43 Localized swelling, mass and lump, lower limb, bilateral (principal); Z86.718 Personal history of other venous thrombosis and embolism

== ENCOUNTER 2021-09-05 07:30 | Outpatient (CLI) | payer OTHER ==
[2021-09-05 08:12] LABS: BASOPHILS # (AUTO) 0.1 10^3/uL (0.0-0.1); BASOPHILS % (AUTO) 0.9 %; EOSINOPHILS # (AUTO) 0.4 10^3/uL (0.0-0.7); EOSINOPHILS % (AUTO) 5.8 %; HCT - HEMATOCRIT 49.4 % (37.0-47.0); HGB - HEMOGLOBIN 16.6 g/dL (12.0-16.0); LYMPHOCYTES # (AUTO) 2.2 10^3/uL (1.5-3.5); LYMPHOCYTES % (AUTO) 32.3 %; MEAN CORPUSCULAR HEMOGLOBIN 27.5 pg (27.0-31.0); MEAN CORPUSCULAR HGB CONC 33.6 g/dL (32.0-36.0); MEAN CORPUSCULAR VOLUME 81.8 fL (81.0-99.0); MONOCYTES # (AUTO) 0.4 10^3/uL (0.0-1.0); MONOCYTES % (AUTO) 5.2 %; NEUTROPHILS # (AUTO) 3.7 10^3/uL (1.5-6.6); NEUTROPHILS % (AUTO) 55.5 %; PLT - PLATELET COUNT 179 10^3/uL (130-450); RED BLOOD COUNT 6.04 10^6/uL (4.20-5.40); RED CELL DISTRIBUTION WIDTH 13.7 % (12.0-15.0); WHITE BLOOD COUNT 6.7 x10^3/uL (4.8-10.8)
[2021-09-05 08:32] LABS: % IRON SATURATION 19 % (20-50); ALBUMIN 3.4 g/dL (3.2-5.5); ALKALINE PHOSPHATASE 76 IU/L (42-121); ALT ALANINE AMINOTRANSFERASE 19 IU/L (10-60); AST ASPARTATE AMINOTRANSFERASE 17 IU/L (10-42); BILIRUBIN,TOTAL 0.7 mg/dL (0.2-1.0); BUN - BLOOD UREA NITROGEN 20 mg/dL (6-20); CALCIUM 9.3 mg/dL (8.5-10.3); CARBON DIOXIDE - CO2 27 mmol/L (21-32); CHLORIDE 100 mmol/L (101-111); CHOLESTEROL 206 mg/dL; CREATININE 0.7 mg/dL (0.4-1.0); GFR - MDRD 87 (>89); GLUCOSE 192 mg/dL (70-100); HDL CHOLESTEROL 41 mg/dL; IRON 65 ug/dL (28-170); LDL CHOLESTEROL,CALCULATED 123 mg/dL; POTASSIUM 3.6 mmol/L (3.5-5.0); SODIUM 137 mmol/L (135-145); TOTAL IRON BINDING CAPACITY 335 ug/dL (250-450); TOTAL PROTEIN 6.7 g/dL (6.7-8.2); TRANSFERRIN 239 mg/dL (192-382); TRIGLYCERIDES 209 mg/dL; VLDL CHOLESTEROL 42 mg/dL
[2021-09-05 08:41] LABS: THYROID STIMULATING HORMONE 4.63 uIU/mL (0.34-5.60)
[2021-09-05 08:50] LABS: FERRITIN 31.5 ng/mL (11.0-306.8)
[2021-09-05 08:53] LABS: FOLATE 12.17 ng/mL (5.90 - >24.8)
[2021-09-05 10:01] LABS: ESTIMATED AVERAGE GLUCOSE 289 mg/dL (70-100); HEMOGLOBIN A1c% 11.7 % (4.27-6.07)
== END 2021-09-05 07:31 | disposition home or self-care (01) ==
LOC: LAB 07:30
PROVIDERS: ATTEND Surgery
DX: Z71.3 Dietary counseling and surveillance (principal)
CPT/HCPCS: 36415; 80053; 80061; 82306; 82607; 82728; 82746; 83036; 83540; 83721; 83970; 84425; 84443; 84466; 84590; 84630; 85025

== ENCOUNTER 2021-09-19 08:38 | Outpatient (CLI) | payer OTHER | END 2021-09-19 08:39 | disposition home or self-care (01) | LOC: RT 08:38 | PROVIDERS: ATTEND Surgery | DX: Z01.810 Encounter for preprocedural cardiovascular examination (principal) | CPT/HCPCS: 93005 ==

== ENCOUNTER 2021-12-05 08:00 | Outpatient (CLI) | payer OTHER ==
--- NOTE | 2021-12-05 15:26 | XRAY Report ---
PROCEDURE: Chest 2 View X-Ray INDICATIONS: ASTHMA EXACERBATION TECHNIQUE: 2 view(s) of the chest. COMPARISON: 10/27/2020.. FINDINGS: Surgical changes and devices: None. Lungs and pleura: No pleural effusions or pneumothorax. Lungs are clear. Mediastinum: Mediastinal contours are normal. Heart size is normal. Bones and chest wall: No suspicious bony abnormalities. Soft tissues appear unremarkable. IMPRESSION: No acute cardiopulmonary disease process. Reviewed by: Zakiya Payan MD, PhD on 12/05/2021 3:24 PM PDT Approved by: Zakiya Payan MD, PhD on 12/05/2021 3:24 PM PDT Station ID: [id number]
== END 2021-12-05 23:59 | disposition home or self-care (01) ==
LOC: DI.S 08:00
PROVIDERS: ATTEND Physician Assistant
DX: J45.901 Unspecified asthma with (acute) exacerbation (principal); J06.9 Acute upper respiratory infection, unspecified; Z20.822 Contact with and (suspected) exposure to COVID-19

== ENCOUNTER 2022-05-10 08:00 | Outpatient (CLI) | payer OTHER ==
[2022-05-10 16:39] LABS: CREATININE 0.7 mg/dL (0.4-1.0); POTASSIUM 4.5 mmol/L (3.5-5.0)
[2022-05-10 20:14] LABS: ESTIMATED AVERAGE GLUCOSE 252 mg/dL (70-100); HEMOGLOBIN A1c% 10.4 % (4.27-6.07)
== END 2022-05-10 23:59 | disposition home or self-care (01) ==
LOC: LAB.R 08:00
PROVIDERS: ATTEND Internal Medicine
DX: E11.9 Type 2 diabetes mellitus without complications (principal)
CPT/HCPCS: 80048; 83036

== ENCOUNTER 2023-03-08 15:16 | Emergency (ER) | payer OTHER ==
[2023-03-08 15:41] VITALS: O2SAT 93
[2023-03-08] MEDS ORDERED: KETOROLAC 60 MG/2 ML VIAL IM STA (16:35)
[2023-03-08] MEDS ORDERED: DEXAMETHASONE 10 MG/ML VIAL IM STA (16:35)
[2023-03-08] MEDS ORDERED: HYDROmorphone 1 MG/ML CARPUJECT IM STA (16:35)
[2023-03-08] MEDS ORDERED: CYCLOBENZAPRINE 10 MG TABLET PO STA (16:37)
--- NOTE | 2023-03-08 16:39 | ED Physician Documentation ---
History of Present Illness - Stated complaint Stated Complaint: BACK PX - Chief complaint Chief Complaint: Back Pain - History obtained from History obtained from: Patient, Family - Additonal information Additional information: The patient comes to the emergency department chief complaint of low back pain radiating to her left leg for the last couple days but especially worse overnight. The patient states that she did some yard work but did not think she had done anything too strenuous and when her low back began to hurt. She cannot get comfortable at all she. She denies any loss of bowel or bladder control. No paralysis. No numbness, tingling, or weakness. No other complaints at this time. 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 HEENT: None Psych: None Musculoskeletal: None Derm: None - Past Surgical History Past Surgical History: Yes HEENT: Cataracts - Present Medications Home Medications: Ambulatory Orders Medication Instructions Recorded Confirmed Liraglutide [Victoza 2-Reagan] 1.2 mg SQ DAILY 08/26/18 03/08/23 Simvastatin 40 mg PO DAILY 08/26/18 03/08/23 glipiZIDE [Glipizide] 5 mg PO DAILY 08/26/18 03/08/23 metFORMIN [Glucophage] 1,000 mg PO BID 08/26/18 03/08/23 Albuterol Sulfate [Proair Hfa 1 - 2 puffs INH Q4H PRN 10/27/20 03/08/23 Inhaler] amLODIPine [Norvasc] 5 mg PO DAILY 10/27/20 03/08/23 Cholecalciferol (Vitamin D3) 5,000 unit PO DAILY 02/15/21 03/08/23 [Vitamin D3] Magnesium 100 mg PO DAILY 02/15/21 03/08/23 [place]-3S/Dha/Epa/Fish Oil [Fish 1,200 mg PO DAILY 02/15/21 03/08/23 Oil 1,200 mg Softgel] Cyclobenzaprine [Flexeril] 10 mg PO TID PRN #20 tablet 03/08/23 HYDROcod/ACETAM 5/325 [Gibson 5/325] 1 - 2 tablet PO Q6H PRN #14 tablet 03/08/23 Lidocaine Patch 5% [Lidoderm Patch] 1 each TOP DAILY PRN #20 patch 03/08/23 Multivitamin 1 each PO DAILY 03/08/23 03/08/23 predniSONE [Deltasone] 60 mg PO DAILY 5 Days #15 tablet 03/08/23 - Allergies Allergies/Adverse Reactions: Allergies Allergy/AdvReac Type Severity Reaction Status Date / Time No Known Drug Allergies Allergy Verified 03/08/23 15:33 - Social History Does the pt smoke?: No Smoking Status: Never smoker Does the pt drink ETOH?: No Does the pt have substance abuse?: No - Immunizations Immunizations are current?: Yes PD ED PE NORMAL - Vitals Vital signs reviewed: Yes - General General: Alert and oriented X 3, No acute distress, Well developed/nourished - HEENT HEENT: Atraumatic, PERRL, EOMI, Moist mucous membranes - Neck Neck: Supple, no meningeal sign - Cardiac Cardiac: RRR, No murmur - Respiratory Respiratory: No respiratory distress, Clear bilaterally - Abdomen Abdomen: Soft, Non tender, Non distended - Back Back: No CVA TTP, No spinal TTP, Other (Tenderness palpation over left lumbar paraspinal musculature and left buttock in the SI region. Mildly limited range of motion secondary to pain.) - Derm Derm: Normal color, Warm and dry, No rash - Extremities Extremities: No deformity - Neuro Neuro: Alert and oriented X 3 - Psych Psych: Normal mood, Normal affect Results - Vitals Vitals: Oxygen O2 Source Room air PD Medical Decision Making - ED course Complexity details: considered differential, d/w patient ED course: I discussed with the patient that at this point in time, there is no imaging study that is likely to be helpful. I have treated her symptomatically in the ED and we have discussed following up with her primary care physician Dr. Freeman to discuss any further imaging such as MRI. We discussed the usual indications for return. Departure - Departure Disposition: 01 Home, Self Care Clinical Impression: Back pain Qualifiers: Back pain location: low back pain Chronicity: acute Back pain laterality: left Sciatica presence: with sciatica Sciatica laterality: sciatica of left side Qualified Code(s): M54.42 - Lumbago with sciatica, left side Condition: Stable Instructions: Lumbar Radiculopathy, ED Sciatica Prescriptions: predniSONE [Deltasone] 60 mg PO DAILY 5 Days #15 tablet Cyclobenzaprine [Flexeril] 10 mg PO TID PRN #20 tablet PRN Reason: Spasms Lidocaine Patch 5% [Lidoderm Patch] 1 each TOP DAILY PRN #20 patch PRN Reason: Pain 5-7 HYDROcod/ACETAM 5/325 [Gibson 5/325] 1 - 2 tablet PO Q6H PRN #14 tablet PRN Reason: Pain Comments: Your symptoms at this point sound most consistent with a flareup of your chronic low back issues, causing both sciatica and nerve impingement of one of the truncal branches. You been started on medication for pain, inflammation, and muscle relaxation here in the ED. Prescriptions for the same kinds of medications have been electronically transmitted to the [facility] pharmacy in [place] your request. Please schedule the next available follow-up appointment with Dr. Freeman to discuss specialty referral. Forms: Activity restrictions Discharge Date/Time: 03/08/23 17:10
[2023-03-08 17:17] VITALS: BP 149/70
== END 2023-03-08 17:10 | disposition home or self-care (01) ==
LOC: ED 15:16
DX: M54.42 Lumbago with sciatica, left side (principal); I10 Essential (primary) hypertension; E78.00 Pure hypercholesterolemia, unspecified; E11.42 Type 2 diabetes mellitus with diabetic polyneuropathy; Z79.84 Long term (current) use of oral hypoglycemic drugs; Z79.899 Other long term (current) drug therapy
CPT/HCPCS: 96372; 99283; A9270; J1170

== ENCOUNTER 2023-03-31 08:00 | Outpatient (CLI) | payer OTHER ==
[2023-03-31 18:20] LABS: BILIRUBIN,URINE NEGATIVE (NEGATIVE); GLUCOSE, URINE (UA) 500 mg/dL (NEGATIVE); KETONES,URINE (UA) NEGATIVE (NEGATIVE); LEUKOCYTE ESTERASE, URINE NEGATIVE (NEGATIVE); NITRITE,URINE NEGATIVE (NEGATIVE); OCCULT BLOOD,URINE NEGATIVE (NEGATIVE); PH,URINE 5.5 PH (5.0-7.5); PROTEIN,URINE >=300 mg/dL (NEGATIVE); UROBILINOGEN,URINE 0.2 (NORMAL) E.U./dL (NORMAL)
[2023-03-31 18:24] LABS: CLARITY,URINE HAZY (CLEAR)
[2023-03-31 18:36] LABS: BACTERIA,URINE Few /HPF (None Seen); RBC,URINE 0-5 /HPF (0-5); SQUAMOUS EPITHELIAL CELL,UR FEW Squamous (<= Few)
== END 2023-03-31 23:59 | disposition home or self-care (01) ==
LOC: LAB.R 08:00
PROVIDERS: ATTEND Emergency Medicine
DX: M54.50 Low back pain, unspecified (principal)
CPT/HCPCS: 81001; 87086

== ENCOUNTER 2023-03-31 08:00 | Outpatient (CLI) | payer OTHER ==
--- NOTE | 2023-03-31 18:08 | XRAY Report ---
PROCEDURE: SI Joints INDICATIONS: LEFT SACROILITIS TECHNIQUE: 3 views of the sacroiliac joints were acquired. COMPARISON: Lumbar spine radiographs, 05/09/2021 FINDINGS: Bones: No bony erosions or ankylosis. No suspicious bony lesions. No fractures. Age-appropriate s clerosis and irregularity can be seen involving the sacroiliac joints. Focal L5-S1 degenerative change is seen. Soft tissues: Overlying bowel gas pattern is normal. No suspicious soft tissue densities. IMPRESSION: Sacral joints within normal limits for age. Focal L5-S1 degenerative change. Reviewed by: Farooq Sylvester MD on 03/31/2023 5:07 PM AASHISH Approved by: Farooq Sylvesetr MD on 03/31/2023 5:07 PM AASHISH Station ID: [id number]
== END 2023-03-31 23:59 | disposition home or self-care (01) ==
LOC: DI.S 08:00
PROVIDERS: ATTEND Emergency Medicine
DX: M46.1 Sacroiliitis, not elsewhere classified (principal); M47.817 Spondylosis without myelopathy or radiculopathy, lumbosacral region

== ENCOUNTER 2023-04-21 10:09 | Outpatient (CLI) | payer OTHER ==
--- NOTE | 2023-04-22 12:56 | XRAY Report ---
PROCEDURE: Chest 2 View X-Ray INDICATIONS: ACUTE BRONCHOSPASM TECHNIQUE: 2 views of the chest were acquired. COMPARISON: 12/05/2021 FINDINGS: Surgical changes and devices: None. Lungs and pleura: Moderate bilateral perihilar peribronchial thickening. No dense consolidation, eff usion, or pneumothorax. Lungs are mildly hyperexpanded. Mediastinum: Mediastinal contours appear normal. Heart size is normal. Bones and chest wall: No suspicious bony lesions. Overlying soft tissues appear unremarkable. IMPRESSION: 1. Findings consistent with bronchitis and/or reactive airways disease. 2. No focal consolidations or effusions. 3. Findings are not significantly changed compared to the prior exam. Reviewed by: Mandi Armendariz MD on 04/22/2023 12:55 PM PDT Approved by: Mandi Armendariz MD on 04/22/2023 12:55 PM PDT Station ID: [id number]
== END 2023-04-21 23:59 | disposition home or self-care (01) ==
LOC: DI.S 10:09
PROVIDERS: ATTEND Emergency Medicine
DX: J20.9 Acute bronchitis, unspecified (principal)

== ENCOUNTER 2023-04-26 16:00 | Outpatient (CLI) | payer OTHER | END 2023-04-26 23:59 | disposition EMS.NT | LOC: EMS 16:00 | DX: R10.84 Generalized abdominal pain (principal); R11.10 Vomiting, unspecified; E11.65 Type 2 diabetes mellitus with hyperglycemia; Z79.84 Long term (current) use of oral hypoglycemic drugs ==

== ENCOUNTER 2023-04-26 16:44 | Emergency (ER) | payer OTHER ==
[2023-04-26] MEDS ORDERED: KETOROLAC 15 MG/ML VIAL IVP STA (17:03)
[2023-04-26] MEDS ORDERED: HYDROmorphone 1 MG/ML CARPUJECT IVP STA ×2 (17:03→18:46)
[2023-04-26] MEDS ORDERED: ONDANSETRON 4 MG/2 ML VIAL IVP STA ×2 (17:03→19:50)
--- NOTE | 2023-04-26 17:03 | ED Physician Documentation ---
PD HPI ABD PAIN - Stated complaint Stated Complaint: ABD PX,N/V - Chief complaint Chief Complaint: Abd Pain - History obtained from History obtained from: Patient - Additional information Additional information: 57-year-old woman with history of obesity and type 2 diabetes presents with abdominal pain and vomiting. She has been sick for about 3 days with vomiting and abdominal pain. She has had a history of biliary colic in the past but still has her gallbladder. No history of abdominal surgeries. She vacillates as to whether or not this is similar to prior gallbladder pain. No blood in the vomit. She did travel to [place] recently. Sick contacts with URIs but no gastroenteritis type symptoms. 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 HEENT: None Psych: None Musculoskeletal: None Derm: None - Past Surgical History Past Surgical History: Yes HEENT: Cataracts - Present Medications Home Medications: Ambulatory Orders Medication Instructions Recorded Confirmed Liraglutide [Victoza 2-Reagan] 1.2 mg SQ DAILY 08/26/18 03/08/23 Simvastatin 40 mg PO DAILY 08/26/18 03/08/23 glipiZIDE [Glipizide] 5 mg PO DAILY 08/26/18 03/08/23 metFORMIN [Glucophage] 1,000 mg PO BID 08/26/18 03/08/23 Albuterol Sulfate [Proair Hfa 1 - 2 puffs INH Q4H PRN 10/27/20 03/08/23 Inhaler] amLODIPine [Norvasc] 5 mg PO DAILY 10/27/20 03/08/23 Cholecalciferol (Vitamin D3) 5,000 unit PO DAILY 02/15/21 03/08/23 [Vitamin D3] Magnesium 100 mg PO DAILY 02/15/21 03/08/23 [place]-3S/Dha/Epa/Fish Oil [Fish 1,200 mg PO DAILY 02/15/21 03/08/23 Oil 1,200 mg Softgel] Cyclobenzaprine [Flexeril] 10 mg PO TID PRN #20 tablet 03/08/23 HYDROcod/ACETAM 5/325 [[place] 5/325] 1 - 2 tablet PO Q6H PRN #14 tablet 03/08/23 Lidocaine Patch 5% [Lidoderm Patch] 1 each TOP DAILY PRN #20 patch 03/08/23 Multivitamin 1 each PO DAILY 03/08/23 03/08/23 predniSONE [Deltasone] 60 mg PO DAILY 5 Days #15 tablet 03/08/23 Apixaban [Eliquis] 2 tab PO BID #90 tablet 04/26/23 Ondansetron Odt [Zofran] 4 mg TL Q6H PRN #10 tablet 04/26/23 Oxycodone HCl/Acetaminophen 1 - 2 each PO Q6H PRN #14 tablet 04/26/23 [Percocet 5-325 mg Tablet] - Allergies Allergies/Adverse Reactions: Allergies Allergy/AdvReac Type Severity Reaction Status Date / Time No Known Drug Allergies Allergy Verified 04/26/23 16:55 - Social History Does the pt smoke?: No Smoking Status: Never smoker Does the pt drink ETOH?: No Does the pt have substance abuse?: No - Immunizations Immunizations are current?: Yes PD ED PE NORMAL - Vitals Vital signs reviewed: Yes - General General: Alert and oriented X 3, Other (She appears uncomfortable and preferring to lay on her right side.) - Cardiac Cardiac: RRR, No murmur - Respiratory Respiratory: No respiratory distress, Clear bilaterally - Abdomen Abdomen: Normal bowel sounds, Soft, Other (Tender in the epigastrium without surgical signs) - Neuro Neuro: Alert and oriented X 3, Normal speech Results - Vitals Vitals: Vital Signs - 24 hr 04/26/23 04/26/23 04/26/23 16:51 16:54 18:54 Temperature 36.3 C L 36.5 C Heart Rate 94 94 84 Respiratory 18 18 18 Rate Blood Pressure 108/75 108/75 158/68 H O2 Saturation 95 95 100 04/26/23 20:00 Temperature 36.5 C Heart Rate 76 Respiratory 16 Rate Blood Pressure 135/77 H O2 Saturation 92 Oxygen O2 Source Room air - Labs Labs: Laboratory Tests 04/26/23 04/26/23 04/26/23 17:05 17:05 19:05 WBC 16.5 H RBC 5.74 H Hgb 15.9 Hct 47.8 H MCV 83.3 MCH 27.7 MCHC 33.3 RDW 14.1 Plt Count 269 MPV 9.1 Neut # (Auto) 13.5 H Lymph # (Auto) 2.1 Camp # (Auto) 0.7 Eos # (Auto) 0.1 Baso # (Auto) 0.1 Absolute Nucleated RBC 0.00 Nucleated RBC % 0.0 Sodium 134 L Potassium 4.4 Chloride 94 L Carbon Dioxide 31 Anion Gap 9.0 BUN 36 H Creatinine 1.0 Estimated GFR (MDRD) 57 L Glucose 497 H Calcium 9.8 Total Bilirubin 0.9 AST 13 ALT 17 Alkaline Phosphatase 92 Total Protein 6.6 Albumin 3.6 Globulin 3.0 Albumin/Globulin Ratio 1.2 Lipase 24 Urine Color YELLOW Urine Clarity HAZY Urine pH 6.0 Ur Specific Mck[place]ney 1.025 Urine Protein >=300 H Urine Glucose (UA) >=1000 H Urine Ketones 15 H Urine Occult Blood TRACE-LYSE Urine Nitrite NEGATIVE Urine Bilirubin NEGATIVE Urine Urobilinogen 0.2 (NORMAL) Ur Leukocyte Esterase TRACE H Urine RBC 0-5 Urine WBC >25 H Ur Squamous Epith Cells FEW Squamous Urine Bacteria Few Urine Casts 0-2 Hyaline Casts Ur Microscopic Review INDICATED Urine Culture Comments INDICATED - Rads (name of study) CT a/p Relevant Findings:: Final report received, EMP independent interpretation of test PD Medical Decision Making - ED course ED course: 57-year-old woman with history of diabetes presents with upper abdominal pain and vomiting of 2 days duration. She is tender in the upper abdomen which does not seem to lateralize to the right despite her history of biliary colic in the past. Initial lab work-up shows a CBC with a leukocytosis of 16.5 and CMP relatively unremarkable save a blood sugar of 497. After administration of IV Toradol, Zofran, and Dilaudid she was feeling much better but remains tender in the upper abdomen, still not really lateralizing. She was administered 8 units of IV insulin for the blood sugar of [address] imaging was ordered. On my "wet read" of her CT she has a large gallstone but without findings of cholecystitis otherwise, but I noticed numerous hypodense areas in the spleen that I think may be consistent with splenic infarctions. This was discussed with the patient and her spouse. She notes she had a DVT a few years ago that we think was probably spontaneous and she was on a DOAC at the time for few months. Subsequently official radiology agreed with my "wet read." We will go ahead and start apixaban anticoagulant and discussed with her the need for hematology consultation as an outpatient for hypercoagulable work-up. UA did show bacteriuria and white cells, that said she does not have symptoms of UTI and her pain is in her upper abdomen we have an alternative diagnosis for that so I did do not think treatment is necessary with antibiotics. Departure - Departure Disposition: 01 Home, Self Care Clinical Impression: Splenic infarction Gall stone Qualifiers: Cholecystitis presence: without cholecystitis Biliary obstruction: without biliary obstruction Qualified Code(s): K80.20 - Calculus of gallbladder without cholecystitis without obstruction Uncontrolled diabetes mellitus Qualifiers: Diabetes mellitus type: type 2 Glycemic state: with hyperglycemia Qualified Code(s): E11.65 - Type 2 diabetes mellitus with hyperglycemia Condition: Good Record reviewed to determine appropriate education?: Yes Instructions: Gallstones Dc, ED DVT Follow-Up: Jyoti Verduzco ARNP [Primary Care Provider] - Prescriptions: Apixaban [Eliquis] 2 tab PO BID #90 tablet Oxycodone HCl/Acetaminophen [Percocet 5-325 mg Tablet] 1 - 2 each PO Q6H PRN #14 tablet PRN Reason: pain Ondansetron Odt [Zofran] 4 mg TL Q6H PRN #10 tablet PRN Reason: Nausea / Vomiting Comments: You are seen today for abdominal pain which we found to be related to splenic infarction, this is similar to what she had in your left leg a few years ago, but to the spleen which is in the left upper quadrant of the abdomen. Given that you have now had 2 blood clotting events I would recommend you follow-up with your primary care nurse practitioner and seek referral to hematology for a hypercoagulable work-up. In the interim I am starting blood thinners. The dose is 10 mg twice a day for the first week, after that just 5 mg twice a day. I sent her prescriptions electronically to the [facility] in [place]. I am prescribing a short course of narcotic pain medication for you. These are potentially dangerous and addictive medications that should be used carefully. These medications may constipate you. Take an [id number]-[id number] stool softener (docusate) twice daily with plenty of water while taking these medications. If you go 24 hours without a bowel movement, take [id number] miralax, per package instructions. Do not drink or drive while taking these medications. If you received narcotic or sedating medications while in the emergency department, do not drive for 24 hours. Store this medication in a safe, secure place and out of reach of children. It is a violation of federal law to give or sell this medication to another person or to use in a manner other than prescribed. The ED will not refill narcotic prescriptions, including prescriptions lost or stolen. To dispose of unwanted medications: 1. [facility] provides a drop box for medication in pill form only (no liquids) 8:00 am to 4:30 p.m. Sunday-Sunday in the lobby of the [facility], [address] [place] [address]. Empty pills into ziplock bag before disposal. Call [phone] for information. 2.[employer] is a free service available to all [facility] residents. Go to [email or web address] Note that many narcotic pain relievers also contain Tylenol/acetaminophen. Please ensure that your total dose of acetaminophen from all sources does not exceed 3 g (3000 mg) per day. Discharge Date/Time: 04/26/23 20:29
[2023-04-26 17:14] LABS: BASOPHILS # (AUTO) 0.1 10^3/uL (0.0-0.1); BASOPHILS % (AUTO) 0.4 %; EOSINOPHILS # (AUTO) 0.1 10^3/uL (0.0-0.7); EOSINOPHILS % (AUTO) 0.6 %; HCT - HEMATOCRIT 47.8 % (37.0-47.0); HGB - HEMOGLOBIN 15.9 g/dL (12.0-16.0); LYMPHOCYTES # (AUTO) 2.1 10^3/uL (1.5-3.5); LYMPHOCYTES % (AUTO) 12.6 %; MEAN CORPUSCULAR HEMOGLOBIN 27.7 pg (27.0-31.0); MEAN CORPUSCULAR HGB CONC 33.3 g/dL (32.0-36.0); MEAN CORPUSCULAR VOLUME 83.3 fL (81.0-99.0); MEAN PLATELET VOLUME 9.1 fL (7.9-10.8); MONOCYTES # (AUTO) 0.7 10^3/uL (0.0-1.0); MONOCYTES % (AUTO) 4.2 %; NEUTROPHILS # (AUTO) 13.5 10^3/uL (1.5-6.6); NEUTROPHILS % (AUTO) 81.4 %; PLT - PLATELET COUNT 269 10^3/uL (130-450); RED BLOOD COUNT 5.74 10^6/uL (4.20-5.40); RED CELL DISTRIBUTION WIDTH 14.1 % (12.0-15.0); WHITE BLOOD COUNT 16.5 x10^3/uL (4.8-10.8)
[2023-04-26 17:25] LABS: ALBUMIN 3.6 g/dL (3.2-5.5); ALBUMIN/GLOBULIN RATIO 1.2 (1.0-2.2); BILIRUBIN,TOTAL 0.9 mg/dL (0.2-1.0); CALCIUM 9.8 mg/dL (8.5-10.3); POTASSIUM 4.4 mmol/L (3.5-4.5); TOTAL PROTEIN 6.6 g/dL (6.4-8.9)
[2023-04-26] MEDS ORDERED: INSULIN REGULAR HUMAN 300 UNIT/3 ML VIAL IVP STA (17:45)
[2023-04-26] MEDS ORDERED: SODIUM CHLORIDE 0.9% 1,000 ML IV STA (17:57)
[2023-04-26 19:13] LABS: BILIRUBIN,URINE NEGATIVE (NEGATIVE); CLARITY,URINE HAZY (CLEAR); GLUCOSE, URINE (UA) >=1000 mg/dL (NEGATIVE); KETONES,URINE (UA) 15 mg/dL (NEGATIVE); LEUKOCYTE ESTERASE, URINE TRACE (NEGATIVE); NITRITE,URINE NEGATIVE (NEGATIVE); OCCULT BLOOD,URINE TRACE-LYSE (NEGATIVE); PROTEIN,URINE >=300 mg/dL (NEGATIVE); UROBILINOGEN,URINE 0.2 (NORMAL) E.U./dL (NORMAL)
[2023-04-26 19:24] LABS: BACTERIA,URINE Few /HPF (None Seen); CASTS, URINE 0-2 Hyaline Casts /LPF; RBC,URINE 0-5 /HPF (0-5); SQUAMOUS EPITHELIAL CELL,UR FEW Squamous (<= Few); WBC,URINE >25 /HPF (0-5)
--- NOTE | 2023-04-26 19:58 | CT Report ---
PROCEDURE: ABDOMEN/PELVIS W INDICATIONS: IV only, upper abd pain CONTRAST: Omni 300 100ml TECHNIQUE: After the administration of intravenous contrast, 5 mm thick sections acquired from the diaphragms to the symphysis. 5 mm thick coronal and sagittal reformats were acquired. For radiation dose reducti on, the following was used: automated exposure control, adjustment of mA and/or kV according to billy ent size. COMPARISON: None FINDINGS: Image quality: Excellent. Lung bases and heart: Unremarkable. Liver: No solid mass. Gallbladder and biliary tree: Cholelithiasis. No wall thickening. A 1.9 cm stone is in the gallbladde r neck. Spleen: Wedge-shaped regions of hypoattenuation in the spleen. Pancreas: No pancreatic ductal dilation. Adrenals: No adrenal nodule. Kidneys and ureters: No hydronephrosis. No renal cystic lesion which requires follow up. No solid mas s. Bowel and peritoneum: No bowel distension. No pathologic free fluid. Lymph nodes: No central or retroperitoneal adenopathy. Vessels: No infrarenal aortic aneurysm. PELVIS Reproductive organs: Unremarkable. Bladder: No abnormal wall thickening, accounting for underdistension. Pelvic lymph nodes: No pelvic adenopathy by size criteria. Bones: No aggressive osseous abnormality. Other: No significant ventral or inguinal hernia. IMPRESSION: Wedge-shaped regions of hypoattenuation the spleen, concerning for multifocal infarct. The splanchnic artery appears widely patent. Cholelithiasis, with a large gallstone in the neck the gallbladder. No evidence of acute cholecystiti s at this time. Symptoms are suspicious for symptomatic cholelithiasis. Reviewed by: Joseph Milan on 04/26/2023 7:57 PM PDT Approved by: Joseph Milan on 04/26/2023 7:57 PM PDT Station ID: [id number]
[2023-04-26] MEDS ORDERED: ONDANSETRON ODT 4 MG Prepack 2 TL STA (20:11)
[2023-04-26] MEDS ORDERED: oxyCODONE/ACET 5/325 Prepack 4 PO STA (20:11)
[2023-04-26] MEDS ORDERED: APIXABAN 5 MG TABLET PO STA (20:11)
[2023-04-26 20:22] VITALS: BP 135/77; O2SAT 92
[2023-04-26] MEDS ORDERED: iohexoL-300 100 ML VIAL IVP ONE (23:43)
--- NOTE | 2023-04-27 11:55 | ED Physician Documentation ---
ED Addendum - Addendum Addendum: 04/27/23 11:55 Took call from pharmacy, I guess they only cover Pradaxa. I sent a prescription for Pradaxa to the pharmacy but along with Lovenox given that Pradaxa is not indicated for the initial treatment of venous thromboembolism. I did call the patient and left a voicemail for her to call me back if she has any questions about that.
== END 2023-04-26 20:29 | disposition home or self-care (01) ==
LOC: ED 16:44
DX: D73.5 Infarction of spleen (principal); K80.20 Calculus of gallbladder without cholecystitis without obstruction; E11.65 Type 2 diabetes mellitus with hyperglycemia; Z79.84 Long term (current) use of oral hypoglycemic drugs; Z86.718 Personal history of other venous thrombosis and embolism; Z79.01 Long term (current) use of anticoagulants; R82.71 Bacteriuria
CPT/HCPCS: 36415; 74177; 80053; 81001; 83690; 85025; 87086; 96374; 96375; 96376; 99284; A9270; J1170; J1815; Q9967; 81003

== ENCOUNTER 2023-04-27 12:45 | Emergency (ER) | payer OTHER ==
[2023-04-27] MEDS ORDERED: HYDROmorphone 1 MG/ML CARPUJECT IVP STA ×2 (13:11→14:52)
[2023-04-27] MEDS ORDERED: ONDANSETRON 4 MG/2 ML VIAL IVP STA (13:11)
[2023-04-27 13:27] LABS: BASOPHILS # (AUTO) 0.1 10^3/uL (0.0-0.1); BASOPHILS % (AUTO) 0.4 %; EOSINOPHILS # (AUTO) 0.2 10^3/uL (0.0-0.7); EOSINOPHILS % (AUTO) 1.2 %; HCT - HEMATOCRIT 45.4 % (37.0-47.0); HGB - HEMOGLOBIN 14.9 g/dL (12.0-16.0); LYMPHOCYTES % (AUTO) 12.3 %; MEAN CORPUSCULAR HEMOGLOBIN 27.7 pg (27.0-31.0); MEAN CORPUSCULAR HGB CONC 32.8 g/dL (32.0-36.0); MEAN CORPUSCULAR VOLUME 84.4 fL (81.0-99.0); MONOCYTES # (AUTO) 0.8 10^3/uL (0.0-1.0); MONOCYTES % (AUTO) 5.1 %; NEUTROPHILS % (AUTO) 80.4 %; PLT - PLATELET COUNT 190 10^3/uL (130-450); RED BLOOD COUNT 5.38 10^6/uL (4.20-5.40); WHITE BLOOD COUNT 16.1 x10^3/uL (4.8-10.8)
[2023-04-27] MEDS ORDERED: ENOXAPARIN 120 MG/0.8 ML SYRINGE SUBQ STA (13:46)
--- NOTE | 2023-04-27 13:48 | ED Physician Documentation ---
PD HPI ABD PAIN - Stated complaint Stated Complaint: ABD PX/NAUSEA - Chief complaint Chief Complaint: Abd Pain - History obtained from History obtained from: Patient - Additional information Additional information: 57-year-old woman with history of DVT x1 was seen for by me yet last night for severe abdominal pain and subsequently was found to have a gallstone but also splenic infarction. She was started on Eliquis and discharged in better condition. She states she really did not have much pain overnight but it came back pretty bad in the epigastrium around 1030 this morning. She tried to take a couple of oxycodone but it really did not help. In the interim, I was notified by the pharmacy that her insurance did not cover Eliquis and I sent in new prescriptions for Pradaxa plus Lovenox, but she has not had any anticoagulants since last night. At the time of my evaluation, she had already called me before she came in and told me she was in severe pain so I had already ordered 1 mg of Dilaudid and 4 mg of Zofran and on my evaluation she is much better and pain-free. 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 : None HEENT: None Psych: None Musculoskeletal: None Derm: None - Past Surgical History Past Surgical History: Yes HEENT: Cataracts - Present Medications Home Medications: Ambulatory Orders Medication Instructions Recorded Confirmed Liraglutide [Victoza 2-Reagan] 1.2 mg SQ DAILY 08/26/18 03/08/23 Simvastatin 40 mg PO DAILY 08/26/18 03/08/23 glipiZIDE [Glipizide] 5 mg PO DAILY 08/26/18 03/08/23 metFORMIN [Glucophage] 1,000 mg PO BID 08/26/18 03/08/23 Albuterol Sulfate [Proair Hfa 1 - 2 puffs INH Q4H PRN 10/27/20 03/08/23 Inhaler] amLODIPine [Norvasc] 5 mg PO DAILY 10/27/20 03/08/23 Cholecalciferol (Vitamin D3) 5,000 unit PO DAILY 02/15/21 03/08/23 [Vitamin D3] Magnesium 100 mg PO DAILY 02/15/21 03/08/23 Harrison-3S/Dha/Epa/Fish Oil [Fish 1,200 mg PO DAILY 02/15/21 03/08/23 Oil 1,200 mg Softgel] Cyclobenzaprine [Flexeril] 10 mg PO TID PRN #20 tablet 03/08/23 HYDROcod/ACETAM 5/325 [Crane 5/325] 1 - 2 tablet PO Q6H PRN #14 tablet 03/08/23 Lidocaine Patch 5% [Lidoderm Patch] 1 each TOP DAILY PRN #20 patch 03/08/23 Multivitamin 1 each PO DAILY 03/08/23 03/08/23 predniSONE [Deltasone] 60 mg PO DAILY 5 Days #15 tablet 03/08/23 Apixaban [Eliquis] 2 tab PO BID #90 tablet 04/26/23 Ondansetron Odt [Zofran] 4 mg TL Q6H PRN #10 tablet 04/26/23 Oxycodone HCl/Acetaminophen 1 - 2 each PO Q6H PRN #14 tablet 04/26/23 [Percocet 5-325 mg Tablet] Dabigatran Etexilate Mesylate 150 mg PO BID #120 cap 04/27/23 [Pradaxa] Enoxaparin Sodium [Lovenox] 120 mg SQ BID #10 ea 04/27/23 HYDROmorphone [Dilaudid] 1 - 3 tab PO Q4H PRN #30 tablet 04/27/23 - Allergies Allergies/Adverse Reactions: Allergies Allergy/AdvReac Type Severity Reaction Status Date / Time No Known Drug Allergies Allergy Verified 04/27/23 13:14 - Social History Does the pt smoke?: No Smoking Status: Never smoker Does the pt drink ETOH?: No Does the pt have substance abuse?: No - Immunizations Immunizations are current?: Yes PD ED PE NORMAL - Vitals Vital signs reviewed: Yes - General General: Alert and oriented X 3, No acute distress - Abdomen Abdomen: Normal bowel sounds, Soft, Other (No tenderness to the upper abdomen including to vigorous and deep palpation to the right upper quadrant.) - Neuro Neuro: Alert and oriented X 3, Normal speech Results - Vitals Vitals: Vital Signs - 24 hr 04/27/23 04/27/23 12:56 15:08 Temperature 35.9 C L Heart Rate 77 80 Respiratory 20 18 Rate Blood Pressure 164/79 H 130/64 O2 Saturation 94 100 Oxygen O2 Source Room air - Labs Labs: Laboratory Tests 04/27/23 04/27/23 04/27/23 13:21 13:21 14:51 WBC 16.1 H RBC 5.38 Hgb 14.9 Hct 45.4 MCV 84.4 MCH 27.7 MCHC 32.8 RDW 14.0 Plt Count 190 MPV 9.0 Neut # (Auto) 13.0 H Lymph # (Auto) 2.0 [place] # (Auto) 0.8 Eos # (Auto) 0.2 Baso # (Auto) 0.1 Absolute Nucleated RBC 0.00 Nucleated RBC % 0.0 Sodium 135 Potassium 4.2 Chloride 97 L Carbon Dioxide 33 H Anion Gap 5.0 L BUN 34 H Creatinine 1.0 Estimated GFR (MDRD) 57 L Glucose 415 H POC Whole Bld Glucose 326 H Calcium 9.0 Total Bilirubin 0.9 AST 18 ALT 15 Alkaline Phosphatase 95 Total Protein 5.9 L Albumin 3.3 Globulin 2.6 Albumin/Globulin Ratio 1.3 Lipase 81 PD Medical Decision Making - ED course ED course: She has a gallstone but she is completely nontender on my evaluation including to deep palpation of the right upper quadrant. Her pain is much better after the administration of IV Dilaudid. She was again hypoglycemic and administered some IV fluids and insulin. We discussed the need to change from Eliquis to Lovenox plus Pradaxa for 5 days then Pradaxa alone. Departure - Departure Disposition: 01 Home, Self Care Clinical Impression: Splenic infarction Condition: Good Record reviewed to determine appropriate education?: Yes Prescriptions: HYDROmorphone [Dilaudid] 1 - 3 tab PO Q4H PRN #30 tablet PRN Reason: pain Comments: I sent the prescription for Dilaudid to [facility]. I would dispose of the oxycodone as per instructions below. Still follow the instructions from yesterday, but instead of the Eliquis/apixaban, you will be taking the Lovenox/Pradaxa for the first 5 days and then just the Pradaxa ongoing. I am prescribing a short course of narcotic pain medication for you. These are potentially dangerous and addictive medications that should be used carefully. These medications may constipate you. Take an [id number] stool softener (docusate) twice daily with plenty of water while taking these medications. If you go 24 hours without a bowel movement, take [id number] miralax, per package instructions. Do not drink or drive while taking these medications. If you received narcotic or sedating medications while in the emergency department, do not drive for 24 hours. Store this medication in a safe, secure place and out of reach of children. It is a violation of federal law to give or sell this medication to another person or to use in a manner other than prescribed. The ED will not refill narcotic prescriptions, including prescriptions lost or stolen. To dispose of unwanted medications: 1. [facility] provides a drop box for medication in pill form only (no liquids) 8:00 am to 4:30 p.m. Sunday-Sunday in the lobby of the [facility], [address] [place] [address]. Empty pills into ziplock bag before disposal. Call [phone] for information. 2.[employer] is a free service available to all [facility] residents. Go to [email or web address] Note that many narcotic pain relievers also contain Tylenol/acetaminophen. Please ensure that your total dose of acetaminophen from all sources does not exceed 3 g (3000 mg) per day. Forms: PCP List Discharge Date/Time: 04/27/23 15:08
[2023-04-27 13:49] LABS: ALBUMIN 3.3 g/dL (3.2-5.5); ALBUMIN/GLOBULIN RATIO 1.3 (1.0-2.2); BILIRUBIN,TOTAL 0.9 mg/dL (0.2-1.0); POTASSIUM 4.2 mmol/L (3.5-4.5); TOTAL PROTEIN 5.9 g/dL (6.4-8.9)
[2023-04-27] MEDS ORDERED: SODIUM CHLORIDE 0.9% 1,000 ML IV STA (13:52)
[2023-04-27] MEDS ORDERED: INSULIN REGULAR HUMAN 300 UNIT/3 ML VIAL IVP STA (13:52)
[2023-04-27 15:12] VITALS: BP 130/64; O2SAT 100
== END 2023-04-27 15:08 | disposition home or self-care (01) ==
LOC: ED 12:45
DX: R10.13 Epigastric pain (principal); D73.5 Infarction of spleen; E11.65 Type 2 diabetes mellitus with hyperglycemia; Z79.84 Long term (current) use of oral hypoglycemic drugs; Z86.718 Personal history of other venous thrombosis and embolism; K80.20 Calculus of gallbladder without cholecystitis without obstruction
CPT/HCPCS: 36415; 80053; 83690; 85025; 96361; 96372; 96374; 96375; 96376; 99283; 99284; J1170; J1650; J1815

== ENCOUNTER 2023-05-02 09:38 | Outpatient (CLI) | payer OTHER ==
[2023-05-02 10:00] LABS: BASOPHILS # (AUTO) 0.1 10^3/uL (0.0-0.1); BASOPHILS % (AUTO) 0.6 %; EOSINOPHILS # (AUTO) 0.4 10^3/uL (0.0-0.7); EOSINOPHILS % (AUTO) 4.7 %; HCT - HEMATOCRIT 42.9 % (37.0-47.0); HGB - HEMOGLOBIN 14.2 g/dL (12.0-16.0); LYMPHOCYTES # (AUTO) 1.8 10^3/uL (1.5-3.5); LYMPHOCYTES % (AUTO) 20.9 %; MEAN CORPUSCULAR HEMOGLOBIN 27.9 pg (27.0-31.0); MEAN CORPUSCULAR HGB CONC 33.1 g/dL (32.0-36.0); MEAN CORPUSCULAR VOLUME 84.3 fL (81.0-99.0); MEAN PLATELET VOLUME 9.4 fL (7.9-10.8); MONOCYTES # (AUTO) 0.7 10^3/uL (0.0-1.0); MONOCYTES % (AUTO) 8.2 %; NEUTROPHILS # (AUTO) 5.6 10^3/uL (1.5-6.6); PLT - PLATELET COUNT 172 10^3/uL (130-450); RED BLOOD COUNT 5.09 10^6/uL (4.20-5.40); RED CELL DISTRIBUTION WIDTH 14.2 % (12.0-15.0); WHITE BLOOD COUNT 8.6 x10^3/uL (4.8-10.8)
[2023-05-02 10:13] LABS: ALBUMIN/GLOBULIN RATIO 1.1 (1.0-2.2); ALKALINE PHOSPHATASE 109 IU/L (42-121); ALT ALANINE AMINOTRANSFERASE 33 IU/L (10-60); AST ASPARTATE AMINOTRANSFERASE 40 IU/L (10-42); BILIRUBIN,TOTAL 0.5 mg/dL (0.2-1.0); BUN - BLOOD UREA NITROGEN 10 mg/dL (6-20); CALCIUM 9.1 mg/dL (8.5-10.3); CARBON DIOXIDE - CO2 34 mmol/L (21-32); CHLORIDE 101 mmol/L (101-111); CHOL/HDL RATIO 6.1 (<4.4); CHOLESTEROL 183 mg/dL; CREATININE 0.7 mg/dL (0.6-1.3); GFR - MDRD 86 (>89); GLUCOSE 279 mg/dL (74-104); HDL CHOLESTEROL 30 mg/dL; LDL CHOLESTEROL,CALCULATED 101 mg/dL; LDL/HDL RATIO 3.4 (<4.4); POTASSIUM 4.3 mmol/L (3.5-4.5); SODIUM 140 mmol/L (135-145); TOTAL PROTEIN 5.7 g/dL (6.4-8.9); TRIGLYCERIDES 258 mg/dL (48-352); VLDL CHOLESTEROL 52 mg/dL
[2023-05-02 10:22] LABS: CREATININE,URINE 176.7 mg/dL
[2023-05-02 10:29] LABS: THYROID STIMULATING HORMONE 4.53 uIU/mL (0.34-5.60)
[2023-05-02 10:41] LABS: MICROALBUMIN,URINE > 225.0 mg/dL
[2023-05-02 10:50] LABS: ESTIMATED AVERAGE GLUCOSE 240 mg/dL (70-100)
== END 2023-05-02 09:39 | disposition home or self-care (01) ==
LOC: LAB 09:38
PROVIDERS: ATTEND Nurse Practitioner
DX: E11.9 Type 2 diabetes mellitus without complications (principal); E78.5 Hyperlipidemia, unspecified; E66.01 Morbid (severe) obesity due to excess calories
CPT/HCPCS: 36415; 80053; 80061; 82043; 82570; 83036; 83721; 84443; 85025

== ENCOUNTER 2023-12-06 08:56 | Outpatient (CLI) | payer OTHER ==
[2023-12-06 09:29] LABS: CALCIUM 10.2 mg/dL (8.5-10.3); POTASSIUM 4.3 mmol/L (3.5-4.5)
[2023-12-06 11:16] LABS: ESTIMATED AVERAGE GLUCOSE 255 mg/dL (70-100); HEMOGLOBIN A1c% 10.5 % (4.27-6.07)
== END 2023-12-06 08:57 | disposition home or self-care (01) ==
LOC: LAB 08:56
PROVIDERS: ATTEND Nurse Practitioner
DX: E11.9 Type 2 diabetes mellitus without complications (principal)
CPT/HCPCS: 36415; 80048; 82043; 82570; 83036

== ENCOUNTER 2024-03-03 09:24 | Outpatient (CLI) | payer OTHER ==
[2024-03-03 09:47] LABS: ALBUMIN 3.8 g/dL (3.2-5.5); ALBUMIN/GLOBULIN RATIO 1.2 (1.0-2.2); BILIRUBIN,TOTAL 0.7 mg/dL (0.2-1.0); CALCIUM 10.1 mg/dL (8.5-10.3); CREATININE 1.2 mg/dL (0.6-1.3); POTASSIUM 4.4 mmol/L (3.5-4.5)
[2024-03-03 10:13] LABS: ESTIMATED AVERAGE GLUCOSE 292 mg/dL (70-100); HEMOGLOBIN A1c% 11.8 % (4.27-6.07)
== END 2024-03-03 09:25 | disposition home or self-care (01) ==
LOC: LAB 09:24
PROVIDERS: ATTEND Nurse Practitioner
DX: I10 Essential (primary) hypertension (principal); E11.9 Type 2 diabetes mellitus without complications
CPT/HCPCS: 36415; 80053; 83036